=== PATIENT | male | born 1995 | race Caucasian/White ===

== ENCOUNTER 2019-11-30 13:31 | Emergency (ER) | payer SELFPAY ==
[~2019-11-30] VITALS: Ht 182.8 cm; Wt 81.6 kg
[2019-11-30 13:38] VITALS: BP 119/67
[2019-11-30] MEDS ORDERED: IBU800 MG PO (14:27)
[2019-11-30] MEDS ORDERED: NORCO 5-325 TA1 EACH PO (14:27)
[2019-11-30] MEDS ORDERED: SEPTDS PO (14:27)
[2019-11-30] MEDS ORDERED: ANTIBIOTIC28.4 GM T (14:27)
== END 2019-11-30 14:57 | disposition home or self-care (01) ==
LOC: ED 13:31
DX: T23.002A Burn of unspecified degree of left hand, unspecified site, initial encounter (principal); J45.909 Unspecified asthma, uncomplicated; Z88.8 Allergy status to other drugs, medicaments and biological substances; X08.8XXA Exposure to other specified smoke, fire and flames, initial encounter; Y93.89 Activity, other specified; Y92.89 Other specified places as the place of occurrence of the external cause; Y99.8 Other external cause status